=== PATIENT | female | born 1955 | race Caucasian/White ===

== ENCOUNTER 2020-06-12 16:02 | Outpatient (RCR) | payer MEDICARE, OTHER, SELFPAY ==
[2016-10-29 06:47] VITALS: BMI 36.1
[2020-06-12] MEDS: COVID-19 VACC, MRNA(PFIZER)/PF 30 MCG/0.3 ML SYRINGE IM (11:11)
[2020-07-03] MEDS: COVID-19 VACC, MRNA(PFIZER)/PF 30 MCG/0.3 ML SYRINGE IM (10:55)
== END 2020-06-12 23:59 ==
LOC: IMMUN 16:02
PROVIDERS: PCP Internal Medicine; Visit Provider Family Medicine
DX: Z23 Encounter for immunization (principal)
CPT/HCPCS: 0001A; 0002A

== ENCOUNTER 2022-03-22 14:40 | Observation (INO) | payer MEDICARE, OTHER, SELFPAY ==
[2022-03-22 14:43] VITALS: BP 169/106; PULSE 75; RESP 18; TEMP 35.5; O2SAT 98; BMI 32.9
--- NOTE | 2022-03-22 15:12 | CT_ITS ---
STUDY: CT BRAIN WITHOUT CONTRAST REASON FOR EXAM: Female, 66 years old. Ms change RADIATION DOSAGE (If Supplied By Facility): CTDIvol = ( 44.99 ) mGy, DLP = ( 829.85 ) mGycm TECHNIQUE: Transaxial CT imaging of the brain was performed without administration of intravenous contrast material. Individualized dose optimization techniques were used for this CT. COMPARISON: September 29, 2016 CT head FINDINGS: Normal soft tissue structures. Normal calvarium. There is mild cerebral atrophy with widening of the extra-axial spaces and ventricular dilatation. Normal white matter tracts of the cerebral hemispheres. Normal basal ganglia and thalami. Normal brainstem. Normal cerebellum. There is no intracranial hemorrhage. There are no findings of an acute ischemic infarction. Normal visualized paranasal sinuses. CT/Brain/Head without Contrast IMPRESSION: Mild atrophy no visualized acute hemorrhage infarct or edema. Electronically Signed: Hodan Bruner MD at 16:36 EST ,
--- NOTE | 2022-03-22 15:12 | EKG12_ITS ---
Test Reason : Blood Pressure : / mmHG Vent. Rate : 078 BPM Atrial Rate : 078 BPM P-R Int : 158 ms QRS Dur : 076 ms QT Int : 392 ms P-R-T Axes : 035 010 019 degrees QTc Int : 446 ms Normal sinus rhythm Nonspecific T wave abnormality Abnormal ECG Confirmed by SCOTT ORTIZ, CARLITOS ([id number]), senior technical editor MIGUELITO BRAGG ([id number]) on 03/24/2022 11:11:40 AM Referred By: Chandu Confirmed By:CARLTIOS CHAVEZ MD
--- NOTE | 2022-03-22 15:16 | NURSING ---
NO OLD EKGS
--- NOTE | 2022-03-22 15:16 | EX.ED.SAOD ---
HPI History of Present Illness Chief Complaint: Neuro S/Sx Detail of Chief Complaint: Visual hallucinations. Concern for polysubstance abuse from pain medicatio Informant: patient, spouse/S.O. and family Onset/Context/Timing Onset: Month(s) Context: Gradual Onset Timing: Continuous Current Severity: Moderate Maximum Severity: Moderate Narrative Narrative: 66-year-old female history of chronic back pain and hypertension. She is on a host of medications at home including Ambien, [place] and Ativan. Some of these have been refilled recently and have had excessive amounts already used. Today she thought neighbors were picnic in her front yard. Called the police and was brought in by ambulance. There is of course no one in her front yard. She has had a looses [place] like this before. While speaking to her [id number] in the hallway she has a long history of prescription medication abuse. And has had episodes like this before. No falls. No head trauma. No recent illness or hospitalization. Reportedly does not drink alcohol or do illicit drugs. Prior similar symptoms: Yes Recent Illness/Hospitalization: [facility] Medical History Anxiety Depression Hypertension Home Medications atenolol 100 mg tablet 100 mg PO DAILY 08/27/14 [History Last Taken Unknown] hydrocodone-acetaminophen 5-325mg 5mg-325mg 1 tab PO BID PRN Pain 08/27/14 [History Last Taken Unknown] lorazepam 1 mg tablet 1 mg PO BID PRN migraines 08/27/14 [History Last Taken Unknown] trazodone 100 mg tablet 300 mg PO QHS 08/27/14 [History Last Taken Unknown] zolpidem 10 mg tablet (Ambien) 12.5 mg PO QHS 08/27/14 [History Last Taken Unknown] losartan 25 mg tablet 100 mg PO DAILY 10/29/16 [History Last Taken Unknown] clonidine HCl 0.2 mg tablet 0.2 mg PO QHS 03/22/22 [History Last Taken Unknown] cyclobenzaprine 10 mg tablet 10 mg PO TID PRN Muscle Spasm 03/22/22 [History Last Taken Unknown] melatonin 03/22/22 [History Last Taken Unknown] metformin 500 mg tablet 500 mg PO DAILY 03/22/22 [History Last Taken Unknown] omeprazole 20 mg capsule,delayed release 40 mg PO DAILY 03/22/22 [History Last Taken Unknown] sertraline 100 mg tablet 100 mg PO DAILY 03/22/22 [History Last Taken Unknown] sumatriptan succinate 100 mg tablet 50 - 100 mg PO PRN PRN Migraine Headache 03/22/22 [History Last Taken Unknown] Allergy/AdvReac Type Severity Reaction Status Date / Time Sulfa (Sulfonamide Allergy Unknown Verified 03/22/22 14:42 Antibiotics) Social History Smoking Status: Never smoker ROS ROS ED ROS Narrative No recent illness. Review of Systems ROS Unobtainable: Denies due to encephalopathy Constitutional Constitutional ED: Denies chills or fever(s) Eyes Eyes: Denies blurry vision ENT ENT ED: Denies ear pain Cardiovascular Cardiovascular: Denies chest pain Respiratory/Chest Respiratory/Chest: Denies cough or dyspnea Gastrointestinal Gastrointestinal: Reports diarrhea; Denies abdominal pain, constipation, melena, nausea or vomiting Genitourinary Genitourinary ED: Denies dysuria Musculoskeletal Musculoskeletal: Reports back pain; Denies arthralgias Integumentary Denies abscess Neurologic Neurologic: Denies headache(s) or paresthesias Psychiatric Psychiatric: Denies anxiety or depression Endocrine Endocrinology: Denies cold intolerance Hematologic/Lymphatic Hematologic/Lymphatic: Denies easy bleeding Allergic/Immunologic Allergic/Immunologic ED: Denies mouth swelling EXAM Physical Exam Narrative Exam Narrative: 66-year-old female no acute distress. Vital signs stable afebrile. Pulse ox 90% on room air no signs hypoxia. H EENT exam alopecia. No signs of trauma. Pupils round reactive light. Pupils are dilated about 4 mm bilaterally. Are reactive. Moist mucous membranes. Neck nontender no lymphadenopathy. Lungs clear to auscultation. Heart regular rhythm rate about 75 no murmur. Chest were nontender. Abdomen soft nontender. Back nontender. Moving all 4 extremities. Equal symmetrical clam grader strength. Dorsi plantarflexion intact. When I entered the room and examined the patient she was seated in a chair. She can get up and ambulate and ambulate transferred to the bed without difficulty. She does know she is in the hospital. She knows the month and year. She knows the president. She does believe that were people in her yard picking again today. Const Vital Signs: 03/22/22 14:43 Temperature 96 F L Temperature Source Temporal Pulse Rate 75 Respiratory Rate 18 Blood Pressure 169/106 H Blood Pressure Mean 127 Pulse Ox 98 Oxygen Delivery Method Room Air Positive well nourished, well developed and obese; Negative for cachectic, contractures or unkempt General Appearance ED: well developed and NAD; Negative for unkempt, cachectic, contractures or pallor Nutritional Appearance: obese; Negative for cachectic HEENT Reports moist mucous membranes; Denies dry mucous membranes atraumatic; Negative for trauma or tenderness Mouth ED: No dry mucous membranes Mouth: No dry mucous membranes Eyes PERRL and EOMs intact bilaterally General Eye ED: Negative for pale conjunctiva or scleral icterus Neck no lymphadenopathy, supple and no JVD Thyroid: Negative for tender Lymph Lymphatic: no lymphadenopathy noted; Negative for lymphadenopathy or other Chest Wall inspection of chest normal and palpation of chest normal Chest: Negative for other Resp normal respiratory effort and clear to auscultation bilaterally Effort and Inspection: Negative for retractions Auscultation: Negative for rales, rhonchi or wheezes Cardio regular rate, regular rhythm, S1 normal heart sound, S2 normal heart sound and no murmurs Rate: Negative for bradycardia or tachycardic Rhythm: Negative for abnormal rhythm Bruits: Negative for other GI soft to palpation, non-tender, non-distended and no masses Inspection: Negative for abdominal distention Auscultation: Negative for hyperactive bowel sounds Palpation: Negative for tender or guarding Back/Spine no CVA tenderness General Back: Negative for CVA tenderness Cervical Spine: Negative for cervical spine tenderness Thoracic Spine / Upper Back: Negative for thoracic spinal tenderness Lumbar Spine / Lower Back: Negative for lumbar spinal tenderness Coccyx: Negative for swelling Extremity General Extremety ED: Negative for edema or tenderness General Extremity: Negative for edema Neuro oriented x3, CN's II-XII intact bilaterally and no sensory deficits noted Neuro Narrative: Slurred speech. Sensorium / Orientation: alert, oriented to person, oriented to place and oriented to time; Negative for confused, lethargic or stuporous Speech: Negative for speech normal Gait (Neuro): normal gait Motor Exam: strength 5/5 throughout Psych mental status grossly normal and thought process normal Appearance: Negative for unkempt Attitude: No belligerent, No agitated, No aggressive and No hostile Mood & Affect: Negative for depressed, anxious or tearful Skin General Skin Exam: Negative for jaundice or pallor Lesions: No no lesions Rashes: no rashes Trauma: Negative for abrasion or laceration MDM MDM MDM Narrative Medical decision making narrative: 66-year-old suspect polysubstance prescription medication abuse. Having visual and auditory hallucinations. Undergo a work-up including CAT scan and labs. She does not look septic or toxic. There is no signs of trauma. Lab Data Attestation: I reviewed the patient's lab results. Lab results narrative: CBC shows white count 6.9 H&H 11.2 and 36.7. Platelets 261. Electrolytes show a gap of 6 BUN 21 creatinine 1. Liver enzymes unremarkable. Glucose 154. Alcohol negative. Chest x-ray is negative. CT is negative but awaiting formal read. Urine tox screen negative. Urinalysis normal. Labs: Laboratory Results - last 24 hr 03/22/22 03/22/22 03/22/22 15:30 15:30 15:30 WBC 6.9 RBC 4.51 Hgb 11.2 L Hct 36.7 L MCV 81.4 MCH 24.8 L MCHC 30.5 L RDW Std Deviation 47.2 H RDW Coeff of Romy 16.0 H Plt Count 261 MPV 11.7 Immature Gran % (Auto) 0.700 Neut % (Auto) 58.5 Lymph % (Auto) 24.4 [place] % (Auto) 13.4 H Eos % (Auto) 2.4 Baso % (Auto) 0.6 Absolute Neuts (auto) 4.1 Absolute Lymphs (auto) 1.69 Nucleated RBC % 0 Sodium 144 Potassium 3.5 Chloride 111 H Carbon Dioxide 27.0 Anion Gap 6 BUN 21 H Creatinine 1.04 H Estim Creat Clear Calc 48.47 Est GFR (MDRD) Af Amer 68 Est GFR (MDRD) Non-Af 56 L BUN/Creatinine Ratio 20.2 H Glucose 154 H Calcium 9.1 Total Bilirubin 0.10 L Direct Bilirubin AST 18 ALT 21 Alkaline Phosphatase 107 Total Protein 6.3 L Albumin 3.2 Globulin 3.1 Albumin/Globulin Ratio 1.0 Urine Color Urine Clarity Urine pH Ur Specific [place] Urine Protein Urine Glucose (UA) Urine Ketones Urine Occult Blood Urine Nitrite Urine Bilirubin Urine Urobilinogen Ur Leukocyte Esterase Urine RBC Urine WBC Ur Squamous Epith Cells Urine Bacteria Urine Mucus Urine Opiates Screen Urine Methadone Screen Ur Barbiturates Screen Ur Phencyclidine Scrn Ur Amphetamines Screen MDMA (Ecstasy) Screen U Benzodiazepines Scrn Urine Cocaine Screen U Cannabinoids Screen Ur Drug Screen Comment Ethyl Alcohol < 3.0 03/22/22 03/22/22 03/22/22 15:30 16:40 16:40 WBC RBC Hgb Hct MCV MCH MCHC RDW Std Deviation RDW Coeff of [place] Plt Count MPV Immature Gran % (Auto) Neut % (Auto) Lymph % (Auto) [place] % (Auto) Eos % (Auto) Baso % (Auto) Absolute Neuts (auto) Absolute Lymphs (auto) Nucleated RBC % Sodium Potassium Chloride Carbon Dioxide Anion Gap BUN Creatinine Estim Creat Clear Calc Est GFR (MDRD) Af Amer Est GFR (MDRD) Non-Af BUN/Creatinine Ratio Glucose Calcium Total Bilirubin 0.10 L Direct Bilirubin < 0.05 AST 19 ALT 21 Alkaline Phosphatase 109 Total Protein 6.5 Albumin 3.2 Globulin 3.3 Albumin/Globulin Ratio Urine Color Yellow Urine Clarity Clear Urine pH 7.0 Ur Specific [place] 1.010 Urine Protein Negative Urine Glucose (UA) Normal Urine Ketones Negative Urine Occult Blood Negative Urine Nitrite Negative Urine Bilirubin Negative Urine Urobilinogen Normal Ur Leukocyte Esterase Negative Urine RBC 0 SEEN Urine WBC 0 SEEN Ur Squamous Epith Cells 0 SEEN Urine Bacteria 0 SEEN Urine Mucus 0 SEEN Urine Opiates Screen NEGATIVE Urine Methadone Screen NEGATIVE Ur Barbiturates Screen NEGATIVE Ur Phencyclidine Scrn NEGATIVE Ur Amphetamines Screen NEGATIVE MDMA (Ecstasy) Screen NEGATIVE U Benzodiazepines Scrn NEGATIVE Urine Cocaine Screen NEGATIVE U Cannabinoids Screen NEGATIVE Ur Drug Screen Comment Ethyl Alcohol Radiography Diagnostic Testing: Clinical Impression(s) from Imaging Studies Brain CT 03/22/22 15:12 IMPRESSION: Mild atrophy no visualized acute hemorrhage infarct or edema. Electronically Signed: Hodan Bruner MD at 16:36 EST , Chest X-Ray 03/22/22 15:58 IMPRESSION: Tortuous aorta. No visualized acute focal infiltrate. Electronically Signed: Hodan Bruner MD at 16:39 EST , Chest x-ray, portable, single view shows no acute abnormality. Interpreted by myself. Normal cardiac silhouette. Normal lungs. CAT scan of the brain shows no acute abnormality but awaiting formal radiology read. Radiologist read is chronic changes. Rhythm Strip Rhythm Strip: Sinus Rhythm Rate: 78 Ectopy: None EKG Initial EKG: Attestation: I personally reviewed and interpreted this EKG as follows: Interpretation: Sinus Rhythm and No Acute Injury Pattern Comments: Normal sinus rhythm rate of 78 no acute signs of AL or ischemia. Discharge Plan Dx/Rx/DC Orders Clinical Impression: Prescription drug abuse, Hallucination, visual Disposition Disposition: [facility] Care [facility] Discharge Date/Time: 03/22/22 17:20
[2022-03-22 15:21] VITALS: BMI 32.9
[2022-03-22 15:40] LABS: Absolute Lymphocyte Count 1.69 X10^3/uL (0.83-4.51); Absolute Neutrophil Count 4.1 X10^3/uL (2.0-7.7); Basophil# 0.04 X10^3/uL; Basophil% 0.6 % (0-1); Eosinophil# 0.17 X10^3/uL; Eosinophils% 2.4 % (0-5); Hematocrit 36.7 % (37-47); Hemoglobin 11.2 g/dL (12.0-15.0); Lymphocyte # 1.69 X10^3/ul (0.83-4.51); Lymphocyte % 24.4 % (19-41); Mean Corp Hgb Conc 30.5 g/dL (32-36); Mean Corpuscular Hgb 24.8 pg (27.0-32.0); Mean Corpuscular Volume 81.4 fL (81-99); Mean Platelet Vol. 11.7 fl (6.2-12.0); Monocyte# 0.93 X10^3/uL; Monocyte% 13.4 % (0-10); NRBC Flagged by Analyzer 0 % (0-5); Neutrophil # 4.06 X10^3/uL (2.7-7.7); Neutrophil % 58.5 % (47-70); Platelet Count 261 K/mm3 (150-450); RBC Distribution Width SD 47.2 fl (35.1-43.9); Red Blood Count 4.51 M/mm3 (4.2-5.4); White Blood Count 6.9 K/mm3 (4.4-11.0)
[2022-03-22] MEDS: 0.9% Normal Saline 1,000 ML 1000 ML IV (15:51)
--- NOTE | 2022-03-22 15:58 | RAD_ITS ---
STUDY: X-RAY CHEST REASON FOR EXAM: Female, 66 years old. Ms change TECHNIQUE: Single AP portable view of the chest. COMPARISON: None. FINDINGS: The lungs are clear and expanded. There is no demonstrated pleural abnormality. Normal size heart. Normal mediastinum and echo. Normal visualized pulmonary arteries. There is atherosclerotic tortuosity of the aortic arch and descending thoracic aorta. There are diffuse degenerative changes of the visualized thoracic spine. Normal visualized ribs, clavicles, and shoulders. There is no demonstrated abnormality of the visualized soft tissue structures of the upper abdomen. RAD/Chest 1 View (Portable) IMPRESSION: Tortuous aorta. No visualized acute focal infiltrate. Electronically Signed: Hodan Bruner MD at 16:39 EST Reading Location ID and State: [facility] / [place] Tel , Service support ,
[2022-03-22 16:06] LABS: AST(SGOT) 18 U/L (15-37); Alanine Aminotransfer ALT/SGPT 21 U/L (13-56); Albumin, Serum 3.2 g/dL (3.2-5.0); Alkaline Phosphatase 107 U/L (45-117); Anion Gap 6 (5-15); BUN 21 mg/dL (7-18); BUN/Creat Ratio 20.2 RATIO (10-20); Calcium,Total 9.1 mg/dL (8.5-10.1); Chloride 111 mmol/L (98-107); Creatinine, Serum 1.04 mg/dL (0.55-1.02); EST Glomerular Filtration Rate 56 mL/min (>60); Est Glom Filt Rate - Afr Amer 68 mL/min (>60); Estimated Creatinine Clearance 48.47 ml/min; Globulin 3.1 g/dL (2.2-4.2); Glucose 154 mg/dL (74-106); Potassium 3.5 mmol/L (3.5-5.1); Protein, Total 6.3 g/dL (6.4-8.2); Sodium Level 144 mmol/L (136-145)
[2022-03-22 16:23] LABS: Alcohol, Blood (Medical)-Serum < 3.0 mg/dL
--- NOTE | 2022-03-22 16:39 | NURSING ---
DR ALEXX CROSS
--- NOTE | 2022-03-22 16:45 | ED.RN ---
This nurse noted [place] bottle to be empty. fill date was 03/06/22 for 60 tablets and prescription for 1 tab po BID PRN for pain. This nurse also noted Ativan count to be 7 in bottle and prescription for 1-2 tabs prn migraines. fill date was 03/06/22 for 40 tablets.
[2022-03-22 16:48] LABS: Bacteria 0 SEEN /hpf (None Seen); Mucous, Urine 0 SEEN /hpf (<or=2+); Red Blood Cells-Urine 0 SEEN /hpf (0-5); Squamous Epithelial Cells - UA 0 SEEN /hpf (5-10); White Blood Cells 0 SEEN /hpf (0-5)
[2022-03-22 16:53] LABS: Color, Urine Yellow (Yellow); Glucose, Dipstick Normal (Normal); Ketone-Dipstick Negative (Negative); Leukocyte Esterase-Dipstick Negative /ul (Negative); Nitrite-Dipstick Negative (Negative); Occult Blood-Urine Negative /ul (Negative); Protein-Dipstick Negative (Negative); Urine Bilirubin Dipstick Negative (Negative); Urine Clarity Clear (Clear); Urine Urobilinogen Normal (Normal)
--- NOTE | 2022-03-22 16:53 | CT_ITS ---
We are attempting to reach an attending provider to discuss findings. An addendum with communication details will be sent when the communication is complete. STUDY: CTA HEAD AND NECK WITH CONTRAST REASON FOR EXAM: Female, 66 years old. Neuro deficit, acute, stroke suspected RADIATION DOSAGE (If Supplied By Facility): CTDIvol = ( 19.82 ) mGy, DLP = ( 681.06 ) mGycm TECHNIQUE: CT angiography was performed with a multi-detector CT scanner. Data acquisition was obtained from the skull base through the vertex following intravenous administration of IV 100mL [id number]-370. MIP images were reconstructed from the axial data set. Post-processing of the angiographic images was performed, with multiplanar reformation and 3D reconstruction. Individualized dose optimization techniques were used for this CT. COMPARISON: CT head March 22, 2022, October 29, 2016 history of headaches and blurred vision. FINDINGS: As seen within the carotid arteries there is a visualized beaded appearance of the petrous carotid arteries on the right side there is a subtle suggestion that there is a lucency or band within the right cavernous carotid that is suggesting a small focal dissection. Image 123 series 2, image 96 series 605. On the left side this is also suggested but not as apparent and image 327 series 2.. Otherwise, Normal right cavernous carotid artery with a normal supraclinoid bifurcation. Normal-caliber left side cavernous carotid artery. There is a narrowed appearance of the record of the left A1 segments which may represent hypoplasia and/or stenosis. There is a small-caliber left side A2 segment with a dominant right. Anterior communicating artery is not well-visualized. Right side M2 and M1 vessels are somewhat diminutive but appear to be patent. Along the left M1 segment there is also a subtle beaded appearance of the vessel suggesting fibromuscular dysplasia. The left side insular portion is diminutive but appears to be patent and is seen posteriorly. 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 There is a persistent origin of the left posterior cerebral artery with absence of the posterior communicating artery (PCOM). Normal bilateral vertebral arteries. There is a small atretic basilar artery, suggesting a basilar insufficiency. There is a tiny caliber of the left side screw cerebellar artery which also is demonstrating very subtle microbeading suggesting fibromuscular dysplasia. Normal bilateral P1, P2 and visualized P3 segments of the posterior cerebral arteries. There is no demonstrated aneurysm of the [place] of [place]. The noncontrasted portions of the study demonstrate no evidence of acute hemorrhage infarct or edema. AORTIC ARCH: There is minimal calcification of the aortic arch. Normal origins of the brachiocephalic, left common carotid, and left subclavian arteries. RIGHT CAROTID ARTERIES: Normal right common carotid artery (CCA). There is a narrowed appearance of the right carotid bulb at the level of the takeoff of the right internal carotid artery that is suggestive of a web commonly seen at this level. At this level there is visualized tortuosity and moderate narrowing. The criteria it would equate to a approximate 40% stenosis of the right internal carotid artery. Image #120 10/14/2004. The internal carotid artery is tortuous at its takeoff migrates medially becomes narrowed and shows a beaded tortuous appearance in the cervical vertebral artery. See image 109, series 605. This beading or tortuosity is associated with fibromuscular dysplasia. Normal origin of the right external carotid artery (ECA). LEFT CAROTID ARTERIES: There is atherosclerotic tortuous elongation of the left common carotid artery. Normal left common carotid bulb. Normal origin of the left internal carotid (ICA) artery without a hemodynamically significant stenosis. There may be a small web at the takeoff of the left internal carotid artery less apparent than seen on the right side. There is a tortuous appearance of the left internal carotid artery. The vessel migrates laterally than far medially and demonstrates a beaded appearance along the internal carotid artery to the cervical carotid artery. Normal origin of the left external carotid artery (ECA). VERTEBRAL ARTERIES: The vessels are tortuous in appearance and appear overall patent. There is a low attenuating foci within the left thyroid measuring 6.[address]/STROKE CTA Head AND Neck W/Con IMPRESSION: Findings consistent with a pattern of fibromuscular dysplasia particularly involving the carotid vessels. Best seen image #106 series 602 with air is visualized tortuosity and lobulated tortuous appearance of the carotid vessels. Allowing for this there is a small focal area of tortuosity and web in the proximal right internal carotid artery causing at least 40% stenosis. There is minimal if any stenosis of the left internal carotid artery. Within the right greater than left cavernous carotid arteries bilaterally there is a subtle suggestion of a band of linear lucency which could potentially represent subtle demonstration of a small segment dissection bilaterally. Following this pattern and there is visualized beaded appearance of the left greater than right M1 segment, MCA arteries. There are diminutive appearing into vessels without visualized large vessel occlusion. There is a narrowed but patent appearance of the right M1 segment. Electronically Signed: Hodan Bruner MD at 18:03 EST Reading Location ID and State: [facility] / [place] Tel , Service support ,
--- NOTE | 2022-03-22 17:03 | HP.PCM.HOS_ITS ---
HPI - General General Date of Admission: 03/22/22 Date of Service: 03/22/22 Chief Complaint: Hallucination HPI Narrative ANAND BREWER, is a 66 F who was brought to the emergency department after a neighbor found her hallucinating. Patient has chronic medical comorbidities including chronic back pain and hypertension. She is on multiple psychotropic medications including [place] and Ativan. Family members in the room patient recently had Ativan and [place] filled however the bottles were found to be empty. Brought to the emergency department initial head CT was negative admitted for subsequent evaluation in the hospital [facility] Medical History Anxiety Depression Hypertension Home Medications atenolol 100 mg tablet 100 mg PO DAILY 08/27/14 [History Last Taken Unknown] hydrocodone-acetaminophen 5-325mg 5mg-325mg 1 tab PO BID PRN Pain 08/27/14 [History Last Taken Unknown] lorazepam 1 mg tablet 1 mg PO BID PRN migraines 08/27/14 [History Last Taken Unknown] trazodone 100 mg tablet 300 mg PO QHS 08/27/14 [History Last Taken Unknown] zolpidem 10 mg tablet (Ambien) 12.5 mg PO QHS 08/27/14 [History Last Taken Unknown] losartan 25 mg tablet 100 mg PO DAILY 10/29/16 [History Last Taken Unknown] clonidine HCl 0.2 mg tablet 0.2 mg PO QHS 03/22/22 [History Last Taken Unknown] cyclobenzaprine 10 mg tablet 10 mg PO TID PRN Muscle Spasm 03/22/22 [History Last Taken Unknown] melatonin 03/22/22 [History Last Taken Unknown] metformin 500 mg tablet 500 mg PO DAILY 03/22/22 [History Last Taken Unknown] omeprazole 20 mg capsule,delayed release 40 mg PO DAILY 03/22/22 [History Last Taken Unknown] sertraline 100 mg tablet 100 mg PO DAILY 03/22/22 [History Last Taken Unknown] sumatriptan succinate 100 mg tablet 50 - 100 mg PO PRN PRN Migraine Headache 03/22/22 [History Last Taken Unknown] Allergy/AdvReac Type Severity Reaction Status Date / Time Sulfa (Sulfonamide Allergy Unknown Verified 03/22/22 14:42 Antibiotics) no significant family history Social History Smoking Status: Never smoker ROS Review of Systems ROS Unobtainable: due to encephalopathy Vital Signs Vital Signs Vital Signs: 03/22/22 14:43 Temperature 96 F L Temperature Source Temporal Pulse Rate 75 Respiratory Rate 18 Blood Pressure 169/106 H Blood Pressure Mean 127 Pulse Ox 98 Oxygen Delivery Method Room Air Weight Weight: 92.533 kg Body Mass Index (BMI) 32.9 Physical Exam Narrative GENERAL: Patient appears agitated HEENT: Atraumatic; normocephalic EYES; Anicteric, Normal Conjunctiva NECK; supple, normal thyroid, RESPIRATORY: Diminished to auscultation CARDIOVASCULAR: Regular S1 S2, GI: soft, normoactive bowel sounds, : No Renal angle tenderness; EXTREMITIES: No edema, no clubbing, MUSCULOSKELETAL: no muscle wasting NEURO: Awake; no lateralizing signs. SKIN: No Rash PSYCH; agitated Results Lab / Micro Data Result Diagrams: 03/22/22 15:30 03/22/22 15:30 Labs: Laboratory Results - last 24 hr 03/22/22 15:30: WBC 6.9, RBC 4.51, Hgb 11.2 L, Hct 36.7 L, MCV 81.4, MCH 24.8 L, MCHC 30.5 L, RDW Std Deviation 47.2 H, RDW Coeff of Romy 16.0 H, Plt Count 261, MPV 11.7, Immature Gran % (Auto) 0.700, Neut % (Auto) 58.5, Lymph % (Auto) 24.4, [place] % (Auto) 13.4 H, Eos % (Auto) 2.4, Baso % (Auto) 0.6, Absolute Neuts (auto) 4.1, Absolute Lymphs (auto) 1.69, Nucleated RBC % 0 03/22/22 15:30: Sodium 144, Potassium 3.5, Chloride 111 H, Carbon Dioxide 27.0, Anion Gap 6, BUN 21 H, Creatinine 1.04 H, Estim Creat Clear Calc 48.47, Est GFR (MDRD) Af Amer 68, Est GFR (MDRD) Non-Af 56 L, BUN/Creatinine Ratio 20.2 H, Glucose 154 H, Calcium 9.1, Total Bilirubin 0.10 L, AST 18, ALT 21, Alkaline Phosphatase 107, Total Protein 6.3 L, Albumin 3.2, Globulin 3.1, Albumin/Globulin Ratio 1.0 03/22/22 15:30: Ethyl Alcohol < 3.0 03/22/22 16:40: Ur Drug Screen Comment 03/22/22 16:40: Urine Color Yellow, Urine Clarity Clear, Urine pH 7.0, Ur Specific [place] 1.010, Urine Protein Negative, Urine Glucose (UA) Normal, Urine Ketones Negative, Urine Occult Blood Negative, Urine Nitrite Negative, Urine Bilirubin Negative, Urine Urobilinogen Normal, Ur Leukocyte Esterase Negative Rhythm Strip Rhythm Strip: Sinus Rhythm Rate: 78 Ectopy: None Radiology Impression Brain CT 03/22/22 15:12 IMPRESSION: Mild atrophy no visualized acute hemorrhage infarct or edema. Electronically Signed: Hodan Bruner MD at 16:36 EST , Chest X-Ray 03/22/22 15:58 IMPRESSION: Tortuous aorta. No visualized acute focal infiltrate. Electronically Signed: Hodan Bruner MD at 16:39 EST , Assessment & Plan Assessment/Plan (1) Hallucination, visual: (2) Prescription drug abuse: PLAN: Plan Patient is a 66-year-old lady admitted with hallucination 1. Altered mental status ? Do suspect side effect of patient multiple psychotropic medications including benzos as well as narcotics. Patient has been admitted to a monitored bed plan is to rule out CVA with an MRI study. Initial head CT obtained was negative. Patient psychotropic medications held started on phenobarb taper to prevent patient from going into acute withdrawal 2. Chronic pain ? Patient is on multiple psychotropic medications including [place]. Patient [place] currently being held in view of her hallucinations 3. Hypertension - Blood pressure controlled, home medications continued with dose adjustment as needed 4. Diabetes mellitus type 2 ? Patient is on metformin held please on Accu-Cheks before meals and at bedtime with sliding scale coverage 5. Class I obesity with BMI of 32.9 ? Plan is to debt counselor patient on weight reduction once clinical condition improves 6. DVT prophylaxis ? [facility] Charges/Coding Visit Charges OBSV E&M: 90487 Initial observation care L3
[2022-03-22 17:07] LABS: Amphetamine Urine VISTA NEGATIVE (<1000 ng/mL); Barbiturate Urine VISTA NEGATIVE (< 200 ng/mL); Benzodiazepine Urine VISTA NEGATIVE (< 200 ng/mL); Cocaine Urine VISTA NEGATIVE (< 300 ng/mL); Ecstacy Urine VISTA NEGATIVE (< 500 ng/mL); Methadone Urine VISTA NEGATIVE (< 300 ng/mL); PCP Urine VISTA NEGATIVE (< 25 ng/mL); THC Urine VISTA NEGATIVE (< 50 ng/mL); Vista UDS pH Range 7
[2022-03-22 17:12] VITALS: BP 182/93; PULSE 72; RESP 16; TEMP 36.6; O2SAT 94
[2022-03-22 17:22] LABS: AST(SGOT) 19 U/L (15-37); Alanine Aminotransfer ALT/SGPT 21 U/L (13-56); Albumin, Serum 3.2 g/dL (3.2-5.0); Alkaline Phosphatase 109 U/L (45-117); Bilirubin, Direct < 0.05 mg/dL (0.00-0.30); Globulin 3.3 g/dL (2.2-4.2); Protein, Total 6.5 g/dL (6.4-8.2)
--- NOTE | 2022-03-22 17:25 | ECHOD_ITS ---
Reason For Study: TIA/CVA Procedure This was a 2D Doppler, Color Flow transthoracic echocardiogram. The study was technically difficult. Exam performed portable in patient room. Left Ventricle Normal LV size. Mid cavitary false tendon noted. Left ventricular systolic function is normal. The estimated ejection fraction is 65 %. No evidence for diastolic dysfunction. No regional wall motion abnormalities noted. Right Ventricle Normal RV size. Normal systolic function. Atria Normal left atrium. Normal right atrium. No doppler evidence for ASD. Bubble contrast study negative for right to left interatrial shunt. Mitral Valve There is no mitral annular calcification. Normal mitral valve. Trivial mitral valve insufficiency. Tricuspid Valve Normal tricuspid valve. Trivial tricuspid valve insufficiency. Unable to estimate RV systolic pressure/pulmonary artery pressure due to technically difficult study. Aortic Valve Trisinus/trileaflet aortic valve. Normal aortic valve. Pulmonic Valve The pulmonic valve is not well visualized. Great Vessels Normal sized aortic root. Pericardium/Pleural No pericardial effusion. Epicardial fat. Medication Performed a rapid injection of agitated mix of 9 cc saline and 1cc air to assess for atrial septal defect. MMode/2D Measurements & Calculations LVIDd: 4.4 cm IVSd: 1.2 cm Ao root diam: 3.0 cm LVIDs: 3.0 cm LVPWd: 1.2 cm LA dimension: 3.9 cm RVDd: 3.1 cm FS: 30.8 % LAV(MOD-bp): 29.5 ml LA A4 area: 14.1 cm2 RA A4 area: 10.1 cm2 LAV(MOD-bp) Indexed: 14.4 ml/m2 LAV(MOD-sp2): 26.5 ml LAV(MOD-sp4): 33.7 ml Time Measurements MV dec time: 0.19 sec Doppler Measurements & Calculations MV E max don: 58.2 cm/sec Lat Peak E' Don: 7.5 cm/sec Med Peak E' Don: 7.9 cm/sec MV A max don: 100.4 cm/sec E/E' lat: 7.8 E/E' med: 7.3 MV E/A: 0.58 MV V2 max: 128.6 cm/sec MV P1/2t max don: 69.4 cm/sec Ao V2 max: 128.0 cm/sec MV max P.6 mmHg MV P1/2t: 93.6 msec Ao max P.6 mmHg MV V2 mean: 60.4 cm/sec MV dec slope: 217.0 cm/sec2 MV mean P.8 mmHg MV V2 VTI: 23.8 cm MVA(P1/2t): 2.3 cm2 LV V1 max: 121.9 cm/sec PA V2 max: 87.4 cm/sec LV V1 max P.9 mmHg ECHO/Echo Complete Interpretation Summary The study was technically difficult. Left ventricular systolic function is normal. The estimated ejection fraction is 65 %. Mid cavitary false tendon noted. Trivial mitral valve insufficiency. Trivial tricuspid valve insufficiency. Epicardial fat. Unable to estimate RV systolic pressure/pulmonary artery pressure due to techni melissa difficult study. No evidence for diastolic dysfunction. Bubble contrast study negative for right to left interatrial shunt. Ordering Physician: Duke Oneal Referring Physician: Allyn June M.D. Performed By: Renato Matson RCS
[2022-03-22 17:50] VITALS: BMI 34.1
[2022-03-22 18:00] VITALS: BP 193/103; PULSE 72; RESP 18; TEMP 36.6; O2SAT 97
[2022-03-22] MEDS: Phenobarbital 32.4 MG Tablet 64.8 MG PO ×2 (18:34→20:51)
--- NOTE | 2022-03-22 20:30 | NURSING ---
Pt sitting in recliner, upset and wanting to go home. Daughter in law is in the room and helping. Meds given, NIH and vitals done. Pt calmed down, but is easily agitated. Did not want to place continuous pulse ox on.
[2022-03-22 20:32] VITALS: BP 130/93; PULSE 74; RESP 18; TEMP 36.9; O2SAT 94
[2022-03-22 20:38] VITALS: PULSE 77
[2022-03-22] MEDS: traZODone 100 MG Tablet PO (20:51)
[2022-03-22] MEDS: Famotidine 20 MG Tablet PO (20:51)
[2022-03-22] MEDS: cloNIDine HCl 0.2 MG Tablet PO (20:51)
[2022-03-22] MEDS: 0.9% Saline Lock 10 ML Syringe IV (20:51)
[2022-03-22] MEDS: 0.9% Normal Saline 1,000 ML 100 ML IV (20:53)
[2022-03-22 21:01] LABS: Bedside Glucose 124 mg/dL (74-106)
--- NOTE | 2022-03-22 21:49 | CPS ---
PRESIDING JUDGE attempted to put patient on PSN continuos pulse ox, patient refuses at this time.
[2022-03-22] MEDS: hydrOXYzine PAM 25 MG Capsule 50 MG PO (23:28)
[2022-03-23] VITALS (10 sets, daily range): BP systolic 141–167; BP diastolic 80–101; PULSE 69–85; RESP 16–18; TEMP 36.8–37.1; O2SAT 94–97; BMI 34.1
[2022-03-23] MEDS: Phenobarbital 32.4 MG Tablet 64.8 MG PO ×6 (01:54→22:30)
[2022-03-23] MEDS: 0.9% Normal Saline 1,000 ML 100 ML IV (05:57)
[2022-03-23 06:03] LABS: Absolute Lymphocyte Count 1.92 X10^3/uL (0.83-4.51); Absolute Neutrophil Count 4.3 X10^3/uL (2.0-7.7); Basophil# 0.04 X10^3/uL; Basophil% 0.6 % (0-1); Eosinophil# 0.12 X10^3/uL; Eosinophils% 1.7 % (0-5); Hematocrit 35.6 % (37-47); Hemoglobin 11.2 g/dL (12.0-15.0); Lymphocyte # 1.92 X10^3/ul (0.83-4.51); Mean Corp Hgb Conc 31.5 g/dL (32-36); Mean Corpuscular Hgb 25.4 pg (27.0-32.0); Mean Corpuscular Volume 80.7 fL (81-99); Mean Platelet Vol. 10.8 fl (6.2-12.0); Monocyte# 0.72 X10^3/uL; Monocyte% 10.1 % (0-10); NRBC Flagged by Analyzer 0 % (0-5); Neutrophil % 60.3 % (47-70); Platelet Count 225 K/mm3 (150-450); RBC Distribution Width SD 47.6 fl (35.1-43.9); Red Blood Count 4.41 M/mm3 (4.2-5.4); White Blood Count 7.1 K/mm3 (4.4-11.0)
[2022-03-23 06:42] LABS: Anion Gap 5 (5-15); BUN 9 mg/dL (7-18); BUN/Creat Ratio 11.4 RATIO (10-20); Chloride 107 mmol/L (98-107); Cholesterol 176 mg/dL (200); Creatinine, Serum 0.79 mg/dL (0.55-1.02); EST Glomerular Filtration Rate 77 mL/min (>60); Est Glom Filt Rate - Afr Amer 93 mL/min (>60); Estimated Creatinine Clearance 50.41 ml/min; Glucose 132 mg/dL (74-106); High Density Lipoprotein 37 mg/dL; Phosphorus 1.7 mg/dL (2.5-4.9); Sodium Level 139 mmol/L (136-145); Triglycerides 240 mg/dL; Very Low Density Lipoprotein 48 mg/dL (5-40)
[2022-03-23 06:45] LABS: Bedside Glucose 140 mg/dL (74-106)
--- NOTE | 2022-03-23 07:25 | PCM.PN.HOSP ---
Subjective Subjective Patient seen still hallucinating. After discussion with patient's family patient hallucinations apparently no new has been going on for years according to her daughter. Consult was subsequently placed to the crisis team to assist with disposition possibly to an inpatient psych facility. Patient narcotics and benzodiazepines placed on hold started on phenobarb taper Objective Data Objective Data Vital Signs: Vital Signs Temp Pulse Resp BP Pulse Ox O2 Del Method 98.8 F 72 18 153/93 H 94 Room Air 03/23/22 04:30 03/23/22 04:30 03/23/22 04:30 03/23/22 04:30 03/23/22 04:30 03/23/22 04:30 Oxygen Delivery Method Room Air Weight: 96 kg Body Mass Index (BMI) 34.1 Intake & Output: Intake and Output for Last 24 Hours 03/21/22 03/22/22 03/23/22 23:59 23:59 23:59 Intake Total 1120 / 1340 1246.67 / 1246.67 Balance 1120 / 1340 1246.67 / 1246.67 Lab / Micro Data Result Diagrams: 03/23/22 05:49 03/23/22 05:49 Labs: Laboratory Results - last 24 hr 03/22/22 15:30: WBC 6.9, RBC 4.51, Hgb 11.2 L, Hct 36.7 L, MCV 81.4, MCH 24.8 L, MCHC 30.5 L, RDW Std Deviation 47.2 H, RDW Coeff of Romy 16.0 H, Plt Count 261, MPV 11.7, Immature Gran % (Auto) 0.700, Neut % (Auto) 58.5, Lymph % (Auto) 24.4, [place] % (Auto) 13.4 H, Eos % (Auto) 2.4, Baso % (Auto) 0.6, Absolute Neuts (auto) 4.1, Absolute Lymphs (auto) 1.69, Nucleated RBC % 0 03/22/22 15:30: Sodium 144, Potassium 3.5, Chloride 111 H, Carbon Dioxide 27.0, Anion Gap 6, BUN 21 H, Creatinine 1.04 H, Estim Creat Clear Calc 48.47, Est GFR (MDRD) Af Amer 68, Est GFR (MDRD) Non-Af 56 L, BUN/Creatinine Ratio 20.2 H, Glucose 154 H, Calcium 9.1, Total Bilirubin 0.10 L, AST 18, ALT 21, Alkaline Phosphatase 107, Total Protein 6.3 L, Albumin 3.2, Globulin 3.1, Albumin/Globulin Ratio 1.0 03/22/22 15:30: Ethyl Alcohol < 3.0 03/22/22 15:30: Total Bilirubin 0.10 L, Direct Bilirubin < 0.05, AST 19, ALT 21, Alkaline Phosphatase 109, Total Protein 6.5, Albumin 3.2, Globulin 3.3 03/22/22 16:40: Urine Opiates Screen NEGATIVE, Urine Methadone Screen NEGATIVE, Ur Barbiturates Screen NEGATIVE, Ur Phencyclidine Scrn NEGATIVE, Ur Amphetamines Screen NEGATIVE, MDMA (Ecstasy) Screen NEGATIVE, U Benzodiazepines Scrn NEGATIVE, Urine Cocaine Screen NEGATIVE, U Cannabinoids Screen NEGATIVE, Ur Drug Screen Comment 03/22/22 16:40: Urine Color Yellow, Urine Clarity Clear, Urine pH 7.0, Ur Specific [place] 1.010, Urine Protein Negative, Urine Glucose (UA) Normal, Urine Ketones Negative, Urine Occult Blood Negative, Urine Nitrite Negative, Urine Bilirubin Negative, Urine Urobilinogen Normal, Ur Leukocyte Esterase Negative, Urine RBC 0 SEEN, Urine WBC 0 SEEN, Ur Squamous Epith Cells 0 SEEN, Urine Bacteria 0 SEEN, Urine Mucus 0 SEEN 03/22/22 20:36: POC Glucose 124 H 03/23/22 05:49: WBC 7.1, RBC 4.41, Hgb 11.2 L, Hct 35.6 L, MCV 80.7 L, MCH 25.4 L, MCHC 31.5 L, RDW Std Deviation 47.6 H, RDW Coeff of Romy 16.0 H, Plt Count 225, MPV 10.8, Immature Gran % (Auto) 0.300, Neut % (Auto) 60.3, Lymph % (Auto) 27.0, [place] % (Auto) 10.1 H, Eos % (Auto) 1.7, Baso % (Auto) 0.6, Absolute Neuts (auto) 4.3, Absolute Lymphs (auto) 1.92, Nucleated RBC % 0 03/23/22 05:49: Sodium 139, Potassium 3.0 L, Chloride 107, Carbon Dioxide 27.0, Anion Gap 5, BUN 9, Creatinine 0.79, Estim Creat Clear Calc 50.41, Est GFR (MDRD) Af Amer 93, Est GFR (MDRD) Non-Af 77, BUN/Creatinine Ratio 11.4, Glucose 132 H, Calcium 8.0 L, Phosphorus 1.7 L, Triglycerides 240 H, Cholesterol 176, LDL Cholesterol 91, VLDL Cholesterol 48 H, HDL Cholesterol 37 L 03/23/22 06:22: POC Glucose 140 H Radiography Diagnostic Testing: Radiology Impression Brain CT 03/22/22 15:12 IMPRESSION: Mild atrophy no visualized acute hemorrhage infarct or edema. Electronically Signed: Hodan Bruner MD at 16:36 EST , Chest X-Ray 03/22/22 15:58 IMPRESSION: Tortuous aorta. No visualized acute focal infiltrate. Electronically Signed: Hodan Bruner MD at 16:39 EST , Head/Neck CTA 03/22/22 16:53 IMPRESSION: Findings consistent with a pattern of fibromuscular dysplasia particularly involving the carotid vessels. Best seen image #[id number] series [id number] with air is visualized tortuosity and lobulated tortuous appearance of the carotid vessels. Allowing for this there is a small focal area of tortuosity and web in the proximal right internal carotid artery causing at least 40% stenosis. There is minimal if any stenosis of the left internal carotid artery. Within the right greater than left cavernous carotid arteries bilaterally there is a subtle suggestion of a band of linear lucency which could potentially represent subtle demonstration of a small segment dissection bilaterally. Following this pattern and there is visualized beaded appearance of the left greater than right M1 segment, MCA arteries. There are diminutive appearing into vessels without visualized large vessel occlusion. There is a narrowed but patent appearance of the right M1 segment. Electronically Signed: Hodan Bruner MD at 18:03 EST , ADDENDUM: 03/22/22 1813 IMPRESSION: Findings consistent with a pattern of fibromuscular dysplasia particularly involving the carotid vessels. Best seen image #[id number] series [id number] with air is visualized tortuosity and lobulated tortuous appearance of the carotid vessels. Allowing for this there is a small focal area of tortuosity and web in the proximal right internal carotid artery causing at least 40% stenosis. There is minimal if any stenosis of the left internal carotid artery. Within the right greater than left cavernous carotid arteries bilaterally there is a subtle suggestion of a band of linear lucency which could potentially represent subtle demonstration of a small segment dissection bilaterally. Following this pattern and there is visualized beaded appearance of the left greater than right M1 segment, MCA arteries. There are diminutive appearing into vessels without visualized large vessel occlusion. There is a narrowed but patent appearance of the right M1 segment. N.B. : The above Results were Read Back by Hodan Bruner MD to Paula Alvarez RN, and understanding confirmed on 03/22/2022 18:07:02 (ET). Electronically Signed: Hodan Bruner MD at 18:03 EST Reading Location ID and State: [facility] / [place] Tel , Service support , Rhythm Strip Rhythm Strip: Sinus Rhythm Rate: 78 Ectopy: None Physical Exam Narrative GENERAL: Patient appears agitated HEENT: Atraumatic; normocephalic EYES; Anicteric, Normal Conjunctiva NECK; supple, normal thyroid, RESPIRATORY: Diminished to auscultation CARDIOVASCULAR: Regular S1 S2, GI: soft, normoactive bowel sounds, : No Renal angle tenderness; EXTREMITIES: No edema, no clubbing, MUSCULOSKELETAL: no muscle wasting NEURO: Awake; no lateralizing signs. SKIN: No Rash PSYCH; agitated Assessment & Plan Assessment/Plan (1) Hallucination, visual: (2) Prescription drug abuse: PLAN: Plan Patient is a 66-year-old lady admitted with hallucination 1. Altered mental status ? Do suspect side effect of patient multiple psychotropic medications including benzos as well as narcotics. Patient has been admitted to a monitored bed plan is to rule out CVA with an MRI study. Initial head CT obtained was negative. Patient psychotropic medications held started on phenobarb taper to prevent patient from going into acute withdrawal ? 03/23/2022 consult was placed to the crisis team regarding patient's hallucinations 2. Chronic pain ? Patient is on multiple psychotropic medications including [place]. Patient Leonard currently being held in view of her hallucinations 3. Hypertension - Blood pressure controlled, home medications continued with dose adjustment as needed 4. Diabetes mellitus type 2 ? Patient is on metformin held please on Accu-Cheks before meals and at bedtime with sliding scale coverage 5. Class I obesity with BMI of 32.9 ? Plan is to public relations counselor patient on weight reduction once clinical condition improves 6. DVT prophylaxis ? [place] Lovenox 7. Suspected fibromuscular dysplasia involving the carotid vessels ? Plan was for patient to have undergone MRI/MRA of the head and neck for further evaluation however given patient hallucination it was anticipated will be very difficult for patient to stay still for 30 minutes for her MRI/MRA. This was discussed with family plan is for patient to follow-up with primary care physician when stable Charges/Coding Visit Charges OBSV E&M: 75833 Subsequent observation care L3
[2022-03-23] MEDS: Pantoprazole Sodium 40 MG Tablet PO (09:11)
[2022-03-23] MEDS: Famotidine 20 MG Tablet PO ×2 (09:11→22:29)
[2022-03-23] MEDS: Enoxaparin 40 MG/0.4 ML Syringe SC (09:11)
[2022-03-23] MEDS: Aspirin 81 MG TAB.CHEW PO (09:11)
[2022-03-23] MEDS: Losartan Potassium 50 MG Tablet 100 MG PO (09:11)
[2022-03-23] MEDS: Folic Acid 1 MG Tablet PO (09:11)
[2022-03-23] MEDS: Sertraline 100 MG Tablet PO (09:11)
[2022-03-23] MEDS: Thiamine Hydrochloride 100 MG Tablet PO (09:11)
[2022-03-23] MEDS: Atenolol 100 MG Tablet PO (09:16)
[2022-03-23 11:05] LABS: Bedside Glucose 141 mg/dL (74-106)
--- NOTE | 2022-03-23 11:15 | CASEMGMT ---
SW spoke with crisis and they will be in to see patient. Risa Fowler PIE MAKER MACHINE MAR
--- NOTE | 2022-03-23 12:19 | CASEMGMT ---
Crisis is here to see patient. Risa Fowler ROLL SLICING MACHINE TENDER FRONT END SOFTWARE ENGINEER
[2022-03-23] MEDS: Haloperidol Lactate 5 MG/ML Vial 2 MG IM (13:25)
--- NOTE | 2022-03-23 13:27 | NURSING ---
CRISIS IN ROOM SPEAKING WITH PT. PT BECOMES UPSET AND LEAVES THE ROOM. YELLING IN HALLS FOR DAUGHTER IN LAW, ROSALIA. PT BELIEVES SHE HAS BEEN KIDNAPPED. UNABLE TO REORIENT PT TO SURROUNDINGS AND TIME. PT CONTINUES TO YELL IN THE [place]ITCH[place] AND REFUSING TO RETURN TO HOSP ROOM. ROSALIA AND , LOVE, RETURN TO UNIT. PT CONTINUES TO BE AGITATED AND YELLING AND UNABLE TO REORIENT TO SITUATION AND SURROUNDINGS. NAEEM HRO, PRESENT AND ASSISTS THIS NURSE TO VERBALLY GUIDE PT TO ROOM. EMOTIONAL SUPPORT PROVIDED BY THIS NURSE, HRO, AND DAUGHTER IN LAW. PT REMAINS AGITATED AND DISORIENTED. CHARGE NURSE OBTAINED ORDER FOR X1 DOSE OF HALDOL PT REFUSING TO TAKE NEURONTIN AND VISTARIL FOR AGITATION. HALDOL GIVEN IM IN RT DELT. WILL CONT TO PROVIDE EMOTIONAL SUPPORT AND MONITOR.
--- NOTE | 2022-03-23 14:40 | CASEMGMT ---
Renae from Crisis spoke with patient and family. Renae is going to work on finding [facility] for patient. [place] slip faxed to Renae at crisis. Risa Fowler GM VIDEO MAR
[2022-03-23] MEDS: Gabapentin 300 MG Capsule PO (15:18)
[2022-03-23] MEDS: hydrOXYzine PAM 25 MG Capsule 50 MG PO (15:18)
--- NOTE | 2022-03-23 15:27 | CASEMGMT ---
KIMANI TORO in to discuss ZARATE for with and DIL as patient is confused. RN MUNA explained ZARATE form to , voices understanding. signed ZARATE form and filed in chart. provided with copy of signed ZARATE form. and daughter had no further questions or concerns at this time.
--- NOTE | 2022-03-23 15:30 | CASEMGMT ---
Renae from Crisis called SW and let SW know she sent referrals to [facility] and [facility]. Original copy of pink slip is in patient's chart. Risa Fowler STOREROOM CLERK MAR
--- NOTE | 2022-03-23 16:28 | NURSING ---
ATTEMPTED TO CALL REPORT TO [place] [id number]. [facility] STATES THEY WILL CALL BACK TO GET REPORT.
[2022-03-23 17:15] LABS: Bedside Glucose 133 mg/dL (74-106)
[2022-03-23] MEDS: cloNIDine HCl 0.2 MG Tablet PO (22:29)
[2022-03-23 22:50] LABS: Bedside Glucose 121 mg/dL (74-106)
[2022-03-24 02:04] VITALS: BMI 34.1
[2022-03-24 02:35] VITALS: BP 151/92; PULSE 67; RESP 18; TEMP 36.3; O2SAT 94
[2022-03-24] MEDS: Phenobarbital 32.4 MG Tablet 64.8 MG PO ×2 (02:38→06:29)
[2022-03-24 06:22] VITALS: BP 155/84; PULSE 68; RESP 18; TEMP 36.5; O2SAT 94
[2022-03-24 06:45] LABS: Bedside Glucose 131 mg/dL (74-106)
--- NOTE | 2022-03-24 07:01 | DS.PCM_ITS ---
Providers Date of Admission: 03/22/22 Date of Discharge: 03/24/22 Primary Care Physician: Dr. Allyn June MD Reason For Visit: ALTERED MENTAL STATUS Diagnosis Discharge Diagnosis (1) Hallucination, visual: Status: Acute Code(s): R44.1 - Visual hallucinations (2) Prescription drug abuse: Status: Acute Plan Patient is a 66-year-old lady admitted with hallucination 1. Altered mental status ? Do suspect side effect of patient multiple psychotropic medications including benzos as well as narcotics. Patient has been admitted to a monitored bed plan is to rule out CVA with an MRI study. Initial head CT obtained was negative. Patient psychotropic medications held started on phenobarb taper to prevent patient from going into acute withdrawal ? 03/23/2022 consult was placed to the crisis team regarding patient's hallucinations -03/24/2022; patient was transferred to an inpatient psych facility once bed was obtained 2. Chronic pain ? Patient is on multiple psychotropic medications including Wishram. Patient Wishram currently being held in view of her hallucinations 3. Hypertension - Blood pressure controlled, home medications continued with dose adjustment as needed 4. Diabetes mellitus type 2 ? Patient is on metformin held please on Accu-Cheks before meals and at bedtime with sliding scale coverage 5. Class I obesity with BMI of 32.9 ? Plan is to adoption counselor patient on weight reduction once clinical condition improves 6. DVT prophylaxis ? SC Lovenox 7. Suspected fibromuscular dysplasia involving the carotid vessels ? Plan was for patient to have undergone MRI/MRA of the head and neck for further evaluation however given patient hallucination it was anticipated will be very difficult for patient to stay still for 30 minutes for her MRI/MRA. This was discussed with family plan is for patient to follow-up with primary care physician when stable Medications at Discharge Home Medications atenolol 100 mg tablet 100 mg PO DAILY 08/27/14 hydrocodone-acetaminophen 5-325mg 5mg-325mg 1 tab PO BID PRN Pain 08/27/14 lorazepam 1 mg tablet 1 mg PO BID PRN migraines 08/27/14 trazodone 100 mg tablet 400 mg PO QHS 08/27/14 zolpidem 10 mg tablet (Ambien) 12.5 mg PO QHS 08/27/14 losartan 25 mg tablet 100 mg PO DAILY 10/29/16 clonidine HCl 0.2 mg tablet 0.2 mg PO QHS 03/22/22 cyclobenzaprine 10 mg tablet 10 mg PO TID PRN Muscle Spasm 03/22/22 melatonin 03/22/22 metformin 500 mg tablet 500 mg PO DAILY 03/22/22 omeprazole 20 mg capsule,delayed release 40 mg PO DAILY 03/22/22 sertraline 100 mg tablet 100 mg PO DAILY 03/22/22 sumatriptan succinate 100 mg tablet 50 - 100 mg PO PRN PRN Migraine Headache 03/22/22 Hospital Course Summary of Care Provided Minutes Spent on Discharge: 35 Physical Exam Narrative GENERAL: Patient appears agitated HEENT: Atraumatic; normocephalic EYES; Anicteric, Normal Conjunctiva NECK; supple, normal thyroid, RESPIRATORY: Diminished to auscultation CARDIOVASCULAR: Regular S1 S2, GI: soft, normoactive bowel sounds, : No Renal angle tenderness; EXTREMITIES: No edema, no clubbing, MUSCULOSKELETAL: no muscle wasting NEURO: Awake; no lateralizing signs. SKIN: No Rash PSYCH; agitated Weight / BMI Weight Weight: 96 kg Body Mass Index (BMI) 34.1 ABG / Lab / Microbiology Data Result Diagrams: 03/23/22 05:49 03/23/22 05:49 Laboratory: Laboratory Results - last 24 hr 03/23/22 10:41: POC Glucose 141 H 03/23/22 16:52: POC Glucose 133 H 03/23/22 22:25: POC Glucose 121 H 03/24/22 06:19: POC Glucose 131 H Microbiology: Microbiology 03/23/22 16:15 Nasal Secretion SARS-CoV-2 Antigen (Rapid) - Final Radiography Diagnostic Testing: Radiology Impression Echocardiogram 03/22/22 17:25 Interpretation Summary The study was technically difficult. Left ventricular systolic function is normal. The estimated ejection fraction is 65 %. Mid cavitary false tendon noted. Trivial mitral valve insufficiency. Trivial tricuspid valve insufficiency. Epicardial fat. Unable to estimate RV systolic pressure/pulmonary artery pressure due to t echnically difficult study. No evidence for diastolic dysfunction. Bubble contrast study negative for right to left interatrial shunt. Ordering Physician: Duke Oneal Referring Physician: Allyn June M.D. Performed By: Renato Matson RCS D/C Instructions Discharge Diet: No restrictions Discharge Activity: Return to Normal Activity Call your doctor if you observe: Fever of 101 or Higher, Shortness of breath, Fainting spells and Chest pain Meaningful Use Info Meaningful Use Diagnoses (Choose all that apply): None applicable Discharge Plan Admission Admit Date/Time: 03/22/22 16:44 Attending Provider: Duke Oneal Primary Care Provider: Allyn June Discharge Orders/Prescriptions Prescriptions: No Action atenolol 100 MG tablet 100 mg PO DAILY hydrocodone-acetaminophen 1 EACH tablet 1 tab PO BID PRN (Reason: Pain) trazodone 100 MG tablet 400 mg PO QHS lorazepam 1 MG tablet 1 mg PO BID PRN (Reason: migraines) zolpidem [Ambien] 10 MG tablet 12.5 mg PO QHS losartan 25 MG tablet 100 mg PO DAILY cyclobenzaprine 10 mg tablet 10 mg PO TID PRN (Reason: Muscle Spasm) Label Comments: TAKE 1 TABLET BY MOUTH TWICE A DAY NEEDED metformin 500 mg Tablet 500 mg PO DAILY clonidine HCl 0.2 mg tablet 0.2 mg PO QHS Label Comments: TAKE 1 TABLET BY MOUTH EVERYDAY AT BEDTIME sumatriptan succinate 100 mg tablet 50 - 100 mg PO PRN PRN (Reason: Migraine Headache) Label Comments: TAKE 0.5-1 TABLETS BY MOUTH NEEDED. TAKE AT ONSET OF MIGRAINE. sertraline 100 mg tablet 100 mg PO DAILY Label Comments: TAKE 1 TABLET BY MOUTH EVERY DAY omeprazole 20 mg capsule,delayed release(DR/EC) 40 mg PO DAILY Label Comments: TAKE 2 CAPSULES BY MOUTH EVERY DAY melatonin Rx Instructions: otc Referrals / Follow Up: Allyn June MD [Primary Care Provider] - Disposition Disposition (needs filled in before D/C Order can be placed): [facility] Charges/Coding Visit Charges OBSV E&M: 69168 Observation care discharge
--- NOTE | 2022-03-24 08:24 | NURSING ---
This RN called Reprt to KIMANI Reece at [facility].
== END 2022-03-24 08:25 ==
LOC: ED 16:50 → PCU 17:04
PROVIDERS: Admitting Provider Internal Medicine; Emergency Provider Emergency Medicine; PCP Internal Medicine; Visit Provider Internal Medicine
DX: R41.82 Altered mental status, unspecified (principal); I65.21 Occlusion and stenosis of right carotid artery; R44.1 Visual hallucinations; G89.29 Other chronic pain; I10 Essential (primary) hypertension; Z79.899 Other long term (current) drug therapy; Z79.84 Long term (current) use of oral hypoglycemic drugs; F41.9 Anxiety disorder, unspecified; F32.A Depression, unspecified; E66.9 Obesity, unspecified; Z68.34 Body mass index [BMI] 34.0-34.9, adult
CPT/HCPCS: 36415; 70450; 70496; 70498; 71045; 80048; 80053; 80061; 80076; 80307; 81001; 82077; 82962; 84100; 85025; 87426; 93005; 93306; 96360; 96361; 96372; 97162; 97166; 99218; 99251; 99252; 99285; 99406; J7030; Q9957; Q9967; A4216; G0378; G0463